=== PATIENT | male | born 1980 | race Caucasian/White ===

== ENCOUNTER 2018-06-28 10:10 | Emergency (ER) | payer MEDICAID ==
[~2018-06-28] VITALS: Ht 170.2 cm; Wt 87.0 kg
[~2018-06-28 10:10] MED LIST: SLF10OP15 RIGHT EYE
[2018-06-28 10:14] VITALS: Ht 170.2 cm; Wt 87.0 kg
[2018-06-28] MEDS ORDERED: morphine 4 MG/ML VIAL IM STA (12:16)
[2018-06-28] MEDS ORDERED: ONDANSETRON (ODT) 4 MG TAB ODT STA (12:16)
[2018-06-28] MEDS ORDERED: CYCL10TA7 PO (13:05)
[2018-06-28] MEDS ORDERED: IBUP800T48 PO (13:05)
[2018-06-28 14:02] VITALS: BP 111/65; PULSE 74; RESP 17
--- NOTE | 2018-07-09 06:40 | ERD ---
ER Documentation Chief Complaint Chief Complaint BACK PAIN SINCE YESTERDAY HPI This is a very pleasant 38-year-old male presents to the emergency department complaining of lower back pain. The patient indicates that the back pain is 8 out of 10 in intensity. He states is localized to the lower back, more prominent on the left side. The patient has no changes in his bladder or bowel frequency. He has had no fevers no shaking no chills. He denies any saddle anesthesia. He denies any trauma to his lower back. He does indicate he performs heavy lifting on a regular basis with his job. He states he has been experiencing intermittent spasms of the lower back intermixed with a dull ache. He did not take any analgesic on occasion prior to arrival ROS All systems reviewed and are negative except as per history of present illness. Medications Home Meds Active Scripts Cyclobenzaprine Hcl* (Cyclobenzaprine Hcl*) 10 Mg Tablet, 10 MG PO TID, #15 TAB Prov:ARPITA LOWERY MD 06/28/18 Ibuprofen* (Motrin*) 800 Mg Tab, 800 MG PO Q6H PRN for PAIN AND OR ELEVATED TEMP, #30 TAB Prov:ARPITA LOWERY MD 06/28/18 Allergies Allergies: Coded Allergies: No Known Allergy (Unverified , 06/28/18) PMhx/Soc Medical and Surgical Hx: pt denies Surgical Hx Hx Respiratory Disorders: Yes (ASTHMA) Hx Alcohol Use: No Hx Substance Use: No Hx Tobacco Use: No Smoking Status: Never smoker Physical Exam Physical Exam Constitutional:Well-developed. Well-nourished. HEENT:Normocephalic. Atraumatic.Pupils were equal round reactive to light. Moist mucous membranes.No tonsillar exudates. Neck: No nuchal rigidity. No lymphadenopathy. No posterior cervical spine tenderness or step-offs. Respiratory: Not using accessory muscles of respiration.Lungs were clear to auscultation bilaterally. No rhonchi. No rales. No wheezing. Cardiovascular: Regular rate regular rhythm.No murmurs. No rubs were appreciated.S1, S2 normal. Distal pulses are palpable 2+ bilaterally. GI: Abdomen was soft. Nontender. Non Distended. No pulsatile abdominal masses or bruits. No rebound. No guarding. Bowel sounds were present and normal. Left CVA tenderness. Muscle skeletal: Full range of motion of both the upper and lower extremities bilaterally.Normal muscle tone.No assymetrical calf tenderness or swelling. Tenderness with palpation over L4-L5 with no step-offs. Straight leg test negative bilaterally Skin: No petechia, no purpura. No lesions on the palms or the soles of the feet. No maculopapular rash. NEURO: Patient was alert, awake, orientated x3.No facial droop. Gait observed and normal with no ataxia.Speech had regular rate and rhythm. No focal neurological deficits. Deep tendon reflexes of the knee and ankle are equal and symmetrical bilaterally. Results 24 hrs Current Medications Medications Dose Sig/Parrish Start Time Status Last (Trade) Ordered Route PRN Stop Time Admin Dose Reason Admin Morphine 4 mg ONCE STAT 06/28/18 DC 06/28/18 Sulfate IM 12:16 12:57 (morphine) 06/28/18 12:21 Ondansetron 4 mg ONCE STAT 06/28/18 DC 06/28/18 HCl (Zofran ODT 12:16 12:57 Odt) 06/28/18 12:21 Procedures/MDM The patient presented to the emergency department with back pain. My differential diagnosis included but was not limited to spinal origins of the pain such as fracture, osteomyelitis, epidural abscess, neoplasm, spondylolishtesis, discogenic, cauda equina syndrome or musculoligamentous. No nspinal causes such as AAA, upper UTI, renal colic, aortic dissection, abdominal neoplasm were also considered as an etiology into their pain. Obtain radiographic imaging the patient's lumbar spine was reviewed by the radiologist and indicate the following: Possible L5 vertebral bilateral pars interarticularis defects. Grade 1 L5 on S1 anterolisthesis. Severe L5-S1 intervertebral disc degeneration. Minimal levoscoliosis of the lumbar spine. Given the patient also had left flank tenderness I do feel is necessary to obtain an ultrasound of the patient's kidneys. There is no evidence of obstructive uropathy or hydronephrosis. The patient received intramuscular morphine and Zofran for analgesic control. I did feel this is muscle skeletal in injury that could be exacerbated by the patient's disc degeneration. I indicated he would benefit from an outpatient MRI. He was discharged home with muscle relaxants and ibuprofen. The patient was discharged home in fair condition. They were instructed to return to the emergency department at any time if there was any worsening of their condition. The patient stated they would follow up with their PCP in the next 24-48 hours to initiate a suitable medication regimen under the care of their PCP as well as to allow their PCP to monitor any drug reactions. The patient was discharged home with prescriptions after they gave informed consent to the new medication. They were also fully informed by myself on the adverse effects and adverse drug interactions in order to provide adequate safeguards to prevent possible adverse reactions to medications. Departure Diagnosis: Primary Impression: Back pain Back pain location: low back pain Chronicity: acute Back pain laterality: left Sciatica presence: without sciatica Qualified Codes: M54.5 - Low back pain Condition: Fair Patient Instructions: Back Sprain/Strain ARPITA LOWERY MD July 09, 2018 06:40
== END 2018-06-28 14:03 | disposition home or self-care (01) ==
LOC: E/R 10:10
DX: M54.5 Low back pain (principal); J45.909 Unspecified asthma, uncomplicated
CPT/HCPCS: 72100; 76775; J2270; Z7610; 96372